=== PATIENT | female | born 1970 | race African-American/Black ===

== ENCOUNTER 2017-01-27 10:38 | Emergency (ER) | payer MEDICAID ==
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
== END 2017-01-27 12:54 | disposition home or self-care (01) ==
LOC: ER 10:38
DX: K64.9 Unspecified hemorrhoids (principal); Z98.890 Other specified postprocedural states

== ENCOUNTER → 2017-03-05 | Outpatient (CLI) | payer MEDICAID | END | disposition home or self-care (01) | LOC: RAD.S 09:25 | DX: Z12.31 Encounter for screening mammogram for malignant neoplasm of breast (principal); N63 Unspecified lump in breast ==

== ENCOUNTER → 2017-03-07 | Outpatient (CLI) | payer MEDICAID | END | disposition home or self-care (01) | LOC: RAD.S 03-06 07:22 | DX: R92.0 Mammographic microcalcification found on diagnostic imaging of breast (principal); N63 Unspecified lump in breast; R92.2 Inconclusive mammogram ==